=== PATIENT | female | born 1995 | race Caucasian/White ===

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

== ENCOUNTER 2018-12-26 13:00 | Emergency (ER) | payer OTHER ==
[2018-12-26 13:08] VITALS: BP 135/91; PULSE 85; RESP 18; TEMP 98.8
--- NOTE | 2018-12-26 13:27 | ED ---
General Adult HPI - General Chief complaint: Allergic Reaction Stated complaint: bee sting Time Seen by Provider: 12/26/18 13:22 Source: patient Mode of arrival: ambulatory Limitations: no limitations - History of Present Illness Initial comments: Dictation was produced using [employer] dictation software. please excuse any grammatical, word or spelling errors. Chief Complaint: 23-year-old female presents with right upper trimming rash after bee sting. History of Present Illness: Only 3-year-old female presents after bee sting. Patient states she was bit on the medial right elbow. Patient states the site became red. Patient has a shortness breath, lightheadedness or sensation of throat closing. Patient does not have any ALLERGIES. She has not ever been bit by a bee before. She is concerned that she was having a severe ALLERGIC reaction. She was in her car when she felt a sharp pinch to her right upper extremity. She then saw a bee that flew away. The ROS documented in this emergency department record has been reviewed and confirmed by me. Those systems with pertinent positive or negative responses have been documented in the HPI. All other systems are other negative and/or noncontributory. PHYSICAL EXAM: General Impression: Alert and oriented x3, not in acute distress HEENT: Normocephalic atraumatic, extra-ocular movements intact, pupils equal and reactive to light bilaterally, mucous membranes moist. Cardiovascular: Heart regular rate and rhythm, S1&S2 audible, no murmurs, rubs or gallops Chest: Lungs clear to auscultation bilaterally, no rhonchi, no wheeze, no rales Abdomen: Bowel sounds present, abdomen soft, non-tender, non-distended, no organomegaly Musculoskeletal: Pulses present and equal in all extremities, no peripheral edema Motor: no focal deficits noted Neurological: CN II-XII grossly intact, no focal motor or sensory deficits noted Skin: Small punctate puncture over the right medial elbow with approximately 5 cm of surrounding erythema, no other rash noted on the body Psych: Normal affect and mood ED course: 23-year-old female presents with local reaction status post bug bite. Patient not showing any signs of ALLERGY or anaphylaxis. Patient discharged. Signs upon arrival are within acceptable limits. Patient counseled on symptoms that would warrant return to the emergency department including diffuse body rash, shortness of breath, sensation of throat closure, abdominal pain. Agreeable to plan. - Related Data Previous Rx's Medication Instructions Recorded Penicillin V Potassium [Pen Vee K] 250 mg PO QID #40 tablet 10/25/16 methylPREDNISolone Dose Pack 4 mg PO DIRECTED #21 package 10/25/16 [Medrol Dose Pack] Allergies Allergy/AdvReac Type Severity Reaction Status Date / Time No Known Allergies Allergy Verified 10/23/16 20:38 Review of Systems ROS Statement: Those systems with pertinent positive or pertinent negative responses have been documented in the HPI. ROS Other: All systems not noted in ROS Statement are negative. Past Medical History Past Medical History: No Reported History History of Any Multi-Drug Resistant Organisms: None Reported Past Surgical History: No Surgical Hx Reported Past Anesthesia/Blood Transfusion Reactions: No Reported Reaction Past Psychological History: No Psychological Hx Reported Smoking Status: Current every day smoker Past Alcohol Use History: None Reported Past Drug Use History: None Reported - Past Family History Mother Family Medical History: Hypertension General Exam Limitations: no limitations Course Vital Signs 12/26/18 13:05 Temperature 98.8 F Pulse Rate 85 Respiratory 18 Rate Blood Pressure 135/91 O2 Sat by Pulse 100 Oximetry Disposition Clinical Impression: Bug bite Disposition: HOME SELF-CARE Condition: Good Instructions (If sedation given, give patient instructions): Acute Rash (ED) Is patient prescribed a controlled substance at d/c from ED?: No Referrals: Moises White MD [Primary Care Provider] - 1-2 days Time of Disposition: 13:28
== END 2018-12-26 13:45 | disposition home or self-care (01) ==
LOC: EC 13:00
DX: T63.441A Toxic effect of venom of bees, accidental (unintentional), initial encounter (principal); S51.031A Puncture wound without foreign body of right elbow, initial encounter; F17.200 Nicotine dependence, unspecified, uncomplicated
CPT/HCPCS: 99282

== ENCOUNTER → 2020-03-10 | Outpatient (CLI) | payer OTHER | END | disposition home or self-care (01) | LOC: LABWHC1 10:42 | PROVIDERS: ATTEND Family Medicine | DX: Z20.828 Contact with and (suspected) exposure to other viral communicable diseases (principal) | CPT/HCPCS: U0003; C9803 ==

== ENCOUNTER → 2020-07-15 | Outpatient (CLI) | payer OTHER | END | disposition home or self-care (01) | LOC: LABWHC1 15:21 | PROVIDERS: ATTEND Family Medicine | DX: Z20.822 Contact with and (suspected) exposure to COVID-19 (principal) | CPT/HCPCS: 87502; U0003; C9803; U0005 ==

== ENCOUNTER → 2020-07-23 | Outpatient (CLI) | payer OTHER | END | disposition home or self-care (01) | LOC: LABWHC1 17:22 | PROVIDERS: ATTEND Family Medicine | DX: U07.1 COVID-19 (principal) | CPT/HCPCS: U0003; C9803 ==

== ENCOUNTER → 2020-07-29 | Outpatient (CLI) | payer OTHER | END | disposition home or self-care (01) | LOC: LABWHC1 16:33 | PROVIDERS: ATTEND Family Medicine | DX: Z20.822 Contact with and (suspected) exposure to COVID-19 (principal) | CPT/HCPCS: U0003; C9803; U0005 ==